=== PATIENT | female | born 1995 | race Caucasian/White ===

== ENCOUNTER → 2019-06-08 | Outpatient (CLI) | payer OTHER ==
[2019-06-13 03:07] LABS: CHLAMYDIA TRACHOMATIS, NAA Negative (Negative); NEISSERIA GONORRHOEAE, NAA Negative (Negative)
== END ==
LOC: LAB SHORT 18:32 → LAB 18:32
PROVIDERS: Nurse Practitioner Family
DX: Z72.51 High risk heterosexual behavior (principal)
CPT/HCPCS: 87491; 87591

== ENCOUNTER → 2019-06-14 | Outpatient (CLI) | payer OTHER | END | disposition home or self-care (01) | LOC: LAB SHORT 15:50 → LAB 15:50 | DX: J02.0 Streptococcal pharyngitis (principal) | CPT/HCPCS: 87081 ==

== ENCOUNTER 2020-09-04 06:27 | Day surgery (SDC) | payer OTHER ==
[~2020-09-04] VITALS: Ht 170.2 cm; Wt 66.2 kg
== END 2020-09-04 09:30 | disposition home or self-care (01) ==
LOC: ORSCSDS 06:27
PROVIDERS: Otolaryngology
PROC: 0CTPXZZ Resection of Tonsils, External Approach (ICD-10-PCS; principal; 2020-09-04 07:30)
PROC: 0CTQXZZ Resection of Adenoids, External Approach (ICD-10-PCS; principal; 2020-09-04 07:30)
DX: J35.01 Chronic tonsillitis (principal)
CPT/HCPCS: 88304; A9270; J1100; J2405; J2704; J3010; J7120

== ENCOUNTER 2020-09-06 03:00 | Emergency (ER) | payer OTHER ==
[~2020-09-06] VITALS: Ht 170.2 cm; Wt 61.2 kg
[2020-09-06] MEDS ORDERED: OXYC5 PO (03:21)
[2020-09-06] MEDS ORDERED: ONDA4ODT MM (03:22)
[2020-09-06 03:36] LABS: BASOPHILS ABSOLUTE AUTO 0.03 K/mm3 (0.00-0.23); BASOPHILS PERCENT AUTO 0 % (0-2); EOSINOPHILS ABSOLUTE AUTO 0.07 K/mm3 (0.00-0.68); EOSINOPHILS PERCENT AUTO 1 % (0-6); Hematocrit 42.2 % (33.0-51.0); Hemoglobin 13.9 g/dL (11.5-16.0); IMMATURE GRAN ABSOLUTE AUTO 0.02 K/mm3 (0.00-0.10); IMMATURE GRAN PERCENT AUTO 0 % (0-1); LYMPHOCYTES ABSOLUTE AUTO 1.97 K/mm3 (0.84-5.20); LYMPHOCYTES PERCENT AUTO 24 % (21-46); MONOCYTES ABSOLUTE AUTO 0.64 K/mm3 (0.16-1.47); MONOCYTES PERCENT AUTO 8 % (4-13); Mean Corpuscular HGB 30.9 pg (26.0-34.0); Mean Corpuscular HGB Conc 32.9 g/dL (31.5-36.5); Mean Corpuscular Volume 94 fL (80-100); Mean Platelet Volume 9.7 fL (9.1-12.4); NEUTROPHILS ABSOLUTE AUTO 5.59 K/mm3 (1.96-9.15); NEUTROPHILS PERCENT AUTO 67 % (41-73); Platelet Count 230 K/mm3 (150-400); RDW Coefficient Variation 11.8 % (11.7-14.2); RDW Standard Deviation 40.9 fL (35.1-46.3); White Blood Cell Count 8.32 K/mm3 (4.00-11.30)
[2020-09-06 03:50] LABS: International Normalized Ratio 0.95; Prothrombin Time Results 10.3 Sec (9.7-11.5)
[2020-09-06 03:54] LABS: Alanine Aminotransfer (ALT/SGP 30 U/L (12-78); Albumin, Blood 4.1 g/dL (3.4-5.0); Albumin/Globulin Ratio 1.2 (0.8-1.8); Alk Phos 57 U/L (50-136); Anion Gap 5 mmol/L (6-16); Aspartate Aminotrans (AST/SGOT 12 U/L (12-37); Bilirubin, Total 0.3 mg/dL (0.1-1.0); Blood Urea Nitrogen 9 mg/dL (8-24); Bun/Creatinine Ratio 12.8 (12.0-20.0); CO2, Blood 30 mmol/L (21-32); Calcium, Blood 8.8 mg/dL (8.5-10.1); Chloride, Blood 102 mmol/L (98-108); Creatinine, Blood 0.71 mg/dL (0.40-1.00); Globulin, Blood 3.5 g/dL (2.2-4.0); Glomerular Filtration Rate >60 (60-); Glucose, Blood 107 mg/dL (70-99); Potassium, Blood 3.5 mmol/L (3.5-5.5); Sodium, Blood 137 mmol/L (136-145); Total Protein, Blood 7.6 g/dL (6.4-8.2)
[2020-09-06] MEDS ORDERED: COMPAZINE10 MG PO (04:20)
== END 2020-09-06 05:52 | disposition home or self-care (01) ==
LOC: ER 03:00
PROVIDERS: Emergency Medicine
DX: G89.18 Other acute postprocedural pain (principal); R51.9 Headache, unspecified; R11.2 Nausea with vomiting, unspecified
CPT/HCPCS: 70450; 80053; 85025; 85610; 96374; 96375; 99284-25; J0780; J1200; J1885; J2405; J7030

== ENCOUNTER 2024-01-22 11:21 | Emergency (ER) | payer SELFPAY ==
[~2024-01-22] VITALS: Ht 170.2 cm; Wt 61.2 kg
[~2024-01-22 11:21] MED LIST: COMPAZINE10 MG PO; ONDA4ODT MM; OXYC5 PO
[2024-01-22 12:05] VITALS: BP 130/87
[2024-01-22] MEDS ORDERED: HYDROcodone 7.5-APAP 325 TAB PO ONE (12:25)
[2024-01-22] MEDS ORDERED: Norco 7.5-3251 EACH PO (13:24)
== END 2024-01-22 13:25 | disposition home or self-care (01) ==
LOC: ER 11:21
DX: S70.11XA Contusion of right thigh, initial encounter (principal); S80.11XA Contusion of right lower leg, initial encounter; W55.12XA Struck by horse, initial encounter
CPT/HCPCS: 73552; 73590; 99283-25; A9270

== ENCOUNTER → 2024-04-10 | Outpatient (CLI) | payer OTHER ==
[~2024-04-10] MED LIST changes: +DOCU100 PO; +ENOX60I SC; +Norco 7.5-3251 EACH PO; +PRENATAL TABLE1 EAC2 PO; +Percocet 5-3251 EACH PO
[2024-04-10 14:50] LABS: BASOPHILS ABSOLUTE AUTO 0.03 K/mm3 (0.00-0.23); BASOPHILS PERCENT AUTO 0 % (0-2); EOSINOPHILS ABSOLUTE AUTO 0.05 K/mm3 (0.00-0.68); EOSINOPHILS PERCENT AUTO 1 % (0-6); Hematocrit 39.9 % (33.0-51.0); Hemoglobin 13.7 g/dL (11.5-16.0); IMMATURE GRAN ABSOLUTE AUTO 0.03 K/mm3 (0.00-0.10); IMMATURE GRAN PERCENT AUTO 0 % (0-1); LYMPHOCYTES PERCENT AUTO 22 % (21-46); MONOCYTES ABSOLUTE AUTO 0.53 K/mm3 (0.16-1.47); MONOCYTES PERCENT AUTO 7 % (4-13); Mean Corpuscular HGB 32.2 pg (26.0-34.0); Mean Corpuscular HGB Conc 34.3 g/dL (31.5-36.5); Mean Corpuscular Volume 94 fL (80-100); Mean Platelet Volume 9.3 fL (9.1-12.4); NEUTROPHILS PERCENT AUTO 69 % (41-73); Platelet Count 289 K/mm3 (150-400); RDW Coefficient Variation 11.7 % (11.7-14.2); RDW Standard Deviation 39.3 fL (35.1-46.3); Red Blood Cell Count 4.26 M/mm3 (3.80-5.20); White Blood Cell Count 7.24 K/mm3 (4.00-11.30)
[2024-04-10 15:05] LABS: Albumin, Blood 4.1 g/dL (3.4-5.0); Albumin/Globulin Ratio 1.2 (0.8-1.8); Bilirubin, Total 0.3 mg/dL (0.1-1.0); Calcium, Blood 8.7 mg/dL (8.5-10.1); Creatinine, Blood 0.73 mg/dL (0.40-1.00); Globulin, Blood 3.3 g/dL (2.2-4.0); Total Protein, Blood 7.4 g/dL (6.4-8.2)
== END ==
LOC: LAB SHORT 14:46 → LAB 14:46
PROVIDERS: Family Medicine
DX: R10.9 Unspecified abdominal pain (principal); Z3A.01 Less than 8 weeks gestation of pregnancy
CPT/HCPCS: 80053; 84702; 85025

== ENCOUNTER 2024-04-13 10:06 | Observation (INO) | payer OTHER ==
[~2024-04-13] VITALS: Ht 170.2 cm; Wt 60.5 kg
[~2024-04-13 10:06] MED LIST changes: -DOCU100 PO; -ENOX60I SC; -PRENATAL TABLE1 EAC2 PO; -Percocet 5-3251 EACH PO
[2024-04-13 11:29] LABS: Source, Urine Clean Catch
[2024-04-13 11:36] LABS: Appearance, Urine Clear (Clear); Bilirubin, Urine Neg (Neg); Blood, Urine Neg (Neg); Color, Urine Yellow (P-Yellow); Glucose Qualitative, Urine Neg (Neg); Ketones, Urine Neg (Neg); Leukocyte Esterase, Urine Neg (Neg); Nitrite, Urine Neg (Neg); Protein, Urine Neg (Neg); Urobilinogen, Urine NORM (Normal)
[2024-04-13] MEDS ORDERED: HYDROcodone 5-APAP 325 TAB PO ONE (13:20)
[2024-04-13] MEDS ORDERED: HYDROmorphone HCl/Pf 1MG SYR IV ONE ×2 (13:55→17:40)
[2024-04-13 14:26] LABS: BASOPHILS ABSOLUTE AUTO 0.02 K/mm3 (0.00-0.23); BASOPHILS PERCENT AUTO 0 % (0-2); EOSINOPHILS ABSOLUTE AUTO 0.07 K/mm3 (0.00-0.68); EOSINOPHILS PERCENT AUTO 1 % (0-6); Hematocrit 42.3 % (33.0-51.0); Hemoglobin 14.8 g/dL (11.5-16.0); IMMATURE GRAN ABSOLUTE AUTO 0.02 K/mm3 (0.00-0.10); IMMATURE GRAN PERCENT AUTO 0 % (0-1); LYMPHOCYTES ABSOLUTE AUTO 2.13 K/mm3 (0.84-5.20); LYMPHOCYTES PERCENT AUTO 28 % (21-46); MONOCYTES ABSOLUTE AUTO 0.52 K/mm3 (0.16-1.47); MONOCYTES PERCENT AUTO 7 % (4-13); Mean Corpuscular HGB 33.1 pg (26.0-34.0); Mean Corpuscular Volume 95 fL (80-100); Mean Platelet Volume 9.2 fL (9.1-12.4); NEUTROPHILS ABSOLUTE AUTO 4.98 K/mm3 (1.96-9.15); NEUTROPHILS PERCENT AUTO 64 % (41-73); Platelet Count 278 K/mm3 (150-400); RDW Coefficient Variation 11.4 % (11.7-14.2); RDW Standard Deviation 39.5 fL (35.1-46.3); Red Blood Cell Count 4.47 M/mm3 (3.80-5.20); White Blood Cell Count 7.74 K/mm3 (4.00-11.30)
[2024-04-13 14:48] LABS: Albumin/Globulin Ratio 1.1 (0.8-1.8); Bilirubin, Total 0.5 mg/dL (0.1-1.0); Bun/Creatinine Ratio 16.7 (12.0-20.0); Creatinine, Blood 0.6 mg/dL (0.40-1.00); Globulin, Blood 3.5 g/dL (2.2-4.0); Potassium, Blood 3.3 mmol/L (3.5-5.5); Total Protein, Blood 7.5 g/dL (6.4-8.2)
[2024-04-13] MEDS ORDERED: Enoxaparin 60 MG/0.6 ML SYR SC SCH (19:00)
[2024-04-13] MEDS ORDERED: HYDROmorphone HCl/Pf 1MG SYR IV PRN (19:30)
[2024-04-13] MEDS ORDERED: Metoclopramide HCl 5MG / ML 2ML Vial IV PRN (19:30)
[2024-04-13] MEDS ORDERED: Potassium Chloride 20 MEQ/15 ML UDC PO ONE (20:00)
[2024-04-13] MEDS ORDERED: NS 1,000 ML IV ONE (20:45)
[2024-04-13 20:50] VITALS: BP 131/105
[2024-04-13] MEDS ORDERED: Docusate Sodium 100 MG Cap PO SCH (21:00)
[2024-04-13] MEDS ORDERED: PRENATAL TABLE1 EAC2 PO (21:02)
[2024-04-14 02:02] VITALS: BP 107/78
--- NOTE | 2024-04-14 04:45 | NUR ---
REC'D PT FROM ER AROUND 2100 FROM ER. AAOX4, EMOTIONAL R/T HOSPITALIZATION AND PAIN, AND UNKNOW STATUS OF . INDEPENDENT IN ROOM. TELE IN PLACE, SR @ 95. EXTREME PAIN IN R SHOULDER WITH RADIATION INTO BACK. DILADID GIVEN ORDERED AND K-PAD. EMISIS X1, REGLAN GIVEN WHICH HELPED. PARTICALLY OCCLUSIVE THROMBUS R PELVIC VEIN, DVT. PT IS 5 WEEKS WITH LOSER BACK CRAMPING SINCE 04/10/24, CONCERN FOR ECTOPIC . OB PLANS TO FOLLOW IN MORNING AND R SHOULDER X-RAY/
[2024-04-14 05:05] LABS: Hematocrit 37.2 % (33.0-51.0); Hemoglobin 12.8 g/dL (11.5-16.0); Mean Corpuscular HGB 32.7 pg (26.0-34.0); Mean Corpuscular HGB Conc 34.4 g/dL (31.5-36.5); Mean Corpuscular Volume 95 fL (80-100); Mean Platelet Volume 9.2 fL (9.1-12.4); Platelet Count 252 K/mm3 (150-400); RDW Coefficient Variation 11.3 % (11.7-14.2); RDW Standard Deviation 39.8 fL (35.1-46.3); Red Blood Cell Count 3.92 M/mm3 (3.80-5.20)
[2024-04-14 05:47] LABS: Bun/Creatinine Ratio 19.3 (12.0-20.0); Calcium, Blood 8.6 mg/dL (8.5-10.1); Creatinine, Blood 0.62 mg/dL (0.40-1.00); Potassium, Blood 4.1 mmol/L (3.5-5.5)
[2024-04-14 07:23] VITALS: BP 97/52
[2024-04-14 09:04] VITALS: BP 117/68
[2024-04-14] MEDS ORDERED: Acetaminophen 325 MG TABLET PO PRN (15:25)
[2024-04-14 15:42] VITALS: BP 117/78
--- NOTE | 2024-04-14 16:32 | NUR ---
SHIFT SUMMARY PATIENT C/O RIGHT SHOULDER PAIN THAT RADIATES UP NECK AND TO RIGHT SIDE OF FACE/THAT MORE SO FEELS LIKE PRESSURE TO THE SINUSES/EYE. PATIENT STATES IT FEELS TINGLY BUT DOES NOT FEEL NUMB. PRN DILAUDID 1 MG GIVEN X3 THIS RN SHIFT. DR. ALEX ADDED PRN TYLENOL. PT AGREEABLE TO TRY 0.5 MG DILAUDID AND TYLENOL TOGETHER NEXT TIME TO WEAN OFF DILAUDID IN PREPARATION FOR GOING HOME. DR. THIERNO MAYER WAS CALLED BY THIS RN PER DR. ALEX WHO STATED NOTHING NEW FROM HER STAND POINT WOULD BE DONE BUT WOULD BE HAPPY TO SPEAK TO DR. ALEX. CALLED BACK DR. ALEX AND GAVE HER DR. BHATIA NUMBER SO THEY COULD SPEAK DIRECTLY. PT C/O NAUSEA AND VOMITED X1 TODAY SHORTLY AFTER ATTEMPTING TO EAT FOOD FAMILY HAD BROUGHT IN. SHOULDER X-RAY COMPLETED. PT IS ABLE TO MAKE NEEDS KNOWN. CALL LIGHT IN ROOM, INDEPENDENT IN ROOM.
[2024-04-14 20:05] VITALS: BP 120/69
[2024-04-15 03:01] VITALS: BP 126/62
--- NOTE | 2024-04-15 05:02 | NUR ---
AAOX4, INDEPENDENT IN ROOM. USES CALL LIGHT FOR NEEDS. MEDICATED FOR R SHOULDER PAIN AND NAUSEA PRN. X1 EMISIS AFTER DINNER. ABLE TO KEEP FOOD FAMILY BROUGHT IN WITHOUT EMISIS. PLAN TO DC HOME WITH FOLLOW-UP OB, MASSAGE AND CIROPRACTIC CARE.
[2024-04-15 08:17] VITALS: BP 118/76
[2024-04-15] MEDS ORDERED: ENOX60I SC (12:17)
[2024-04-15] MEDS ORDERED: DOCU100 PO (12:17)
[2024-04-15] MEDS ORDERED: Percocet 5-3251 EACH PO (12:18)
--- NOTE | 2024-04-15 13:36 | NUR ---
PT DISCHARGED DC INSTRUCTIONS GIVEN TO THE PT BY ANAHY BRADSHAW. THE PTS PRESCRIPTIONS WERE REFAXED TO [facility] PER THE PTS REQUEST. THE PT AMBULATED OUT STEADY ON HER FEET. DECLINED A WHEELCHAIR TRANSPORT.
--- NOTE | 2024-04-15 13:46 | NUR ---
DISCHARGE NOTE. DISCHARGE PAPERWORK REVIEWED WITH PATIENT. JULI GATHERED AND RETUREND. IV'S REMOVED. DR. ALEX ADDED ZOFRAN TO DISCHARGE MED REC SO AFER PATIENT HAD LEFT UNIT, CALLED PATIENT BACK TO LET HER KNOW. ALL MEDICATIONS ORIGINALLY FAXED TO [facility] BUT THEY DID NOT CARRY LOVENOX INJECTIONS SO ALL MEDS FAXED TO [facility] FA[facility] SENT FOR NEW [place].
== END 2024-04-15 13:25 | disposition home or self-care (01) ==
LOC: ER 10:06 → MEDS 10:07 → ENPENDDIS 04-15 12:55 → MEDS 04-15 13:25
PROVIDERS: Nurse Practitioner Acute Care; Physician Assistant; ADMIT Student in an Organized Health Care Education/Training Program
DX: O99.891 Other specified diseases and conditions complicating pregnancy (principal); M25.511 Pain in right shoulder; Z3A.00 Weeks of gestation of pregnancy not specified
CPT/HCPCS: 36415; 71260; 73030; 76801; 80048; 80053; 81003; 84702; 85025; 85027; 93005; 93010; 93971; 96372; 96374-59; 96375; 96376; 96376-59; 99285-25; A9270; G0378; J1171; J1650; J2765; J7030; Q9967

== ENCOUNTER 2024-05-14 16:23 | Emergency (ER) | payer OTHER ==
[~2024-05-14] VITALS: Ht 170.2 cm; Wt 61.2 kg
[~2024-05-14 16:23] MED LIST changes: +DOCU100 PO; +ENOX60I SC; +PRENATAL TABLE1 EAC2 PO; +Percocet 5-3251 EACH PO
[2024-05-14 16:31] VITALS: BP 137/79
[2024-05-14 16:59] LABS: BASOPHILS ABSOLUTE AUTO 0.03 K/mm3 (0.00-0.23); BASOPHILS PERCENT AUTO 0 % (0-2); EOSINOPHILS PERCENT AUTO 2 % (0-6); Hematocrit 37.1 % (33.0-51.0); IMMATURE GRAN ABSOLUTE AUTO 0.03 K/mm3 (0.00-0.10); IMMATURE GRAN PERCENT AUTO 0 % (0-1); LYMPHOCYTES ABSOLUTE AUTO 2.45 K/mm3 (0.84-5.20); LYMPHOCYTES PERCENT AUTO 28 % (21-46); MONOCYTES ABSOLUTE AUTO 0.69 K/mm3 (0.16-1.47); MONOCYTES PERCENT AUTO 8 % (4-13); Mean Corpuscular HGB 32.7 pg (26.0-34.0); Mean Corpuscular Volume 93 fL (80-100); Mean Platelet Volume 9.7 fL (9.1-12.4); NEUTROPHILS ABSOLUTE AUTO 5.44 K/mm3 (1.96-9.15); NEUTROPHILS PERCENT AUTO 62 % (41-73); Platelet Count 289 K/mm3 (150-400); RDW Coefficient Variation 11.2 % (11.7-14.2); RDW Standard Deviation 38.3 fL (35.1-46.3); Red Blood Cell Count 3.98 M/mm3 (3.80-5.20); White Blood Cell Count 8.84 K/mm3 (4.00-11.30)
[2024-05-14 17:56] LABS: Albumin, Blood 3.4 g/dL (3.4-5.0); Bilirubin, Total 0.1 mg/dL (0.1-1.0); Bun/Creatinine Ratio 20.9 (12.0-20.0); Calcium, Blood 8.6 mg/dL (8.5-10.1); Creatinine, Blood 0.62 mg/dL (0.40-1.00); Globulin, Blood 3.5 g/dL (2.2-4.0); Potassium, Blood 3.7 mmol/L (3.5-5.5); Total Protein, Blood 6.9 g/dL (6.4-8.2)
[2024-05-14 18:45] LABS: Source, Urine Clean Catch
[2024-05-14 18:48] LABS: Appearance, Urine Clear (Clear); Bilirubin, Urine Neg (Neg); Blood, Urine 1+ (Neg); Color, Urine Yellow (P-Yellow); Glucose Qualitative, Urine Neg (Neg); Ketones, Urine Neg (Neg); Leukocyte Esterase, Urine Neg (Neg); Nitrite, Urine Neg (Neg); Protein, Urine Neg (Neg); Urobilinogen, Urine NORM (Normal)
[2024-05-14 18:56] LABS: Bacteria Rare /hpf; Red Blood Cells, Urine 0-2 /hpf (0-2); Squamous Epithelial Cells Few /hpf (Few); White Blood Cells, Urine 0-2 /hpf (0-5)
[2024-05-14] MEDS ORDERED: RX Prepack 6 Tabs Oxycodone 5mg UD ONE (19:55)
[2024-05-14] MEDS ORDERED: Acetaminophen 500 MG Tab PO ONE (19:55)
== END 2024-05-14 20:17 | disposition home or self-care (01) ==
LOC: ER 16:23
PROVIDERS: Student in an Organized Health Care Education/Training Program
DX: O46.91 Antepartum hemorrhage, unspecified, first trimester (principal); O99.891 Other specified diseases and conditions complicating pregnancy; R10.2 Pelvic and perineal pain; Z3A.08 8 weeks gestation of pregnancy; Z79.899 Other long term (current) drug therapy
CPT/HCPCS: 76801; 76817; 80053; 81001; 84702; 85025; 86900; 86901; 99284-25; A9270

== ENCOUNTER 2024-07-05 16:03 | Emergency (ER) | payer OTHER ==
[~2024-07-05] VITALS: Ht 170.2 cm; Wt 65.3 kg
[2024-07-05 16:33] LABS: Source, Urine Clean Catch
[2024-07-05 16:36] LABS: Appearance, Urine Clear (Clear); Bilirubin, Urine Neg (Neg); Blood, Urine Neg (Neg); Glucose Qualitative, Urine Neg (Neg); Ketones, Urine Neg (Neg); Leukocyte Esterase, Urine Neg (Neg); Nitrite, Urine Neg (Neg); Protein, Urine Neg (Neg); Specific Gravity, Urine 1.005 (1.003-1.022); Urobilinogen, Urine NORM (Normal)
[2024-07-05 16:44] LABS: BASOPHILS ABSOLUTE AUTO 0.03 K/mm3 (0.00-0.23); BASOPHILS PERCENT AUTO 0 % (0-2); EOSINOPHILS ABSOLUTE AUTO 0.11 K/mm3 (0.00-0.68); EOSINOPHILS PERCENT AUTO 2 % (0-6); Hematocrit 35.5 % (33.0-51.0); Hemoglobin 12.3 g/dL (11.5-16.0); IMMATURE GRAN ABSOLUTE AUTO 0.02 K/mm3 (0.00-0.10); IMMATURE GRAN PERCENT AUTO 0 % (0-1); LYMPHOCYTES ABSOLUTE AUTO 1.62 K/mm3 (0.84-5.20); LYMPHOCYTES PERCENT AUTO 24 % (21-46); MONOCYTES ABSOLUTE AUTO 0.36 K/mm3 (0.16-1.47); MONOCYTES PERCENT AUTO 5 % (4-13); Mean Corpuscular HGB 31.9 pg (26.0-34.0); Mean Corpuscular HGB Conc 34.6 g/dL (31.5-36.5); Mean Corpuscular Volume 92 fL (80-100); Mean Platelet Volume 9.4 fL (9.1-12.4); NEUTROPHILS PERCENT AUTO 69 % (41-73); Platelet Count 247 K/mm3 (150-400); RDW Coefficient Variation 12.3 % (11.7-14.2); RDW Standard Deviation 41.3 fL (35.1-46.3); Red Blood Cell Count 3.86 M/mm3 (3.80-5.20); White Blood Cell Count 6.84 K/mm3 (4.00-11.30)
[2024-07-05 16:45] LABS: Color, Urine Pale Yellow (P-Yellow)
[2024-07-05 17:09] LABS: Albumin, Blood 3.2 g/dL (3.4-5.0); Albumin/Globulin Ratio 0.9 (0.8-1.8); Bilirubin, Total 0.1 mg/dL (0.1-1.0); Bun/Creatinine Ratio 19.4 (12.0-20.0); Calcium, Blood 8.6 mg/dL (8.5-10.1); Creatinine, Blood 0.57 mg/dL (0.40-1.00); Globulin, Blood 3.5 g/dL (2.2-4.0); Potassium, Blood 3.4 mmol/L (3.5-5.5); Total Protein, Blood 6.7 g/dL (6.4-8.2)
[2024-07-05] MEDS ORDERED: Morphine Sulfate 4 MG/1 ML Injection IV ONE ×2 (19:50→23:15)
[2024-07-05] MEDS ORDERED: NS 1,000 ML IV SCH (23:15)
[2024-07-06 00:30] VITALS: BP 111/53
== END 2024-07-06 00:50 | disposition home or self-care (01) ==
LOC: ER 16:03
PROVIDERS: Physician Assistant
DX: O62.9 Abnormality of forces of labor, unspecified (principal); O26.892 Other specified pregnancy related conditions, second trimester; R10.2 Pelvic and perineal pain; Z3A.16 16 weeks gestation of pregnancy; G43.909 Migraine, unspecified, not intractable, without status migrainosus; Z79.899 Other long term (current) drug therapy
CPT/HCPCS: 76705; 76815; 76817; 80053; 81003; 83690; 85025; 96361; 96374; 96376; 99284-25; J2270; J7030

== ENCOUNTER 2024-08-16 18:26 | Emergency (ER) | payer OTHER ==
[~2024-08-16] VITALS: Ht 170.2 cm; Wt 68.0 kg
[2024-08-16] MEDS ORDERED: Acetaminophen 500 MG Tab PO ONE (18:35)
[2024-08-16] MEDS ORDERED: Ondansetron HCl 2 MG / ML 2ML Vial IV ONE (18:35)
[2024-08-16] MEDS ORDERED: NS 1,000 ML IV SCH (18:35)
[2024-08-16] MEDS ORDERED: Morphine Sulfate 4 MG/1 ML Injection IV ONE ×2 (18:40→19:45)
[2024-08-16] MEDS ORDERED: ENOX80I SC (19:09)
[2024-08-16 19:13] LABS: BASOPHILS ABSOLUTE AUTO 0.02 K/mm3 (0.00-0.23); BASOPHILS PERCENT AUTO 0 % (0-2); EOSINOPHILS ABSOLUTE AUTO 0.16 K/mm3 (0.00-0.68); EOSINOPHILS PERCENT AUTO 2 % (0-6); Hematocrit 35.4 % (33.0-51.0); Hemoglobin 12.3 g/dL (11.5-16.0); IMMATURE GRAN ABSOLUTE AUTO 0.03 K/mm3 (0.00-0.10); IMMATURE GRAN PERCENT AUTO 0 % (0-1); LYMPHOCYTES ABSOLUTE AUTO 1.67 K/mm3 (0.84-5.20); LYMPHOCYTES PERCENT AUTO 24 % (21-46); MONOCYTES ABSOLUTE AUTO 0.47 K/mm3 (0.16-1.47); MONOCYTES PERCENT AUTO 7 % (4-13); Mean Corpuscular HGB 31.6 pg (26.0-34.0); Mean Corpuscular HGB Conc 34.7 g/dL (31.5-36.5); Mean Corpuscular Volume 91 fL (80-100); Mean Platelet Volume 9.4 fL (9.1-12.4); NEUTROPHILS ABSOLUTE AUTO 4.75 K/mm3 (1.96-9.15); NEUTROPHILS PERCENT AUTO 67 % (41-73); Platelet Count 227 K/mm3 (150-400); RDW Coefficient Variation 12.7 % (11.7-14.2); RDW Standard Deviation 41.8 fL (35.1-46.3); Red Blood Cell Count 3.89 M/mm3 (3.80-5.20)
[2024-08-16 19:17] LABS: Source, Urine Clean Catch
[2024-08-16 19:20] LABS: Bilirubin, Urine Neg (Neg); Blood, Urine Neg (Neg); Glucose Qualitative, Urine Neg (Neg); Ketones, Urine Neg (Neg); Leukocyte Esterase, Urine Neg (Neg); Nitrite, Urine Neg (Neg); Protein, Urine Neg (Neg); Specific Gravity, Urine 1.005 (1.003-1.022); Urobilinogen, Urine NORM (Normal)
[2024-08-16 19:33] LABS: Appearance, Urine Clear (Clear); Color, Urine Pale Yellow (P-Yellow)
[2024-08-16 19:36] LABS: Albumin, Blood 3.4 g/dL (3.4-5.0); Albumin/Globulin Ratio 0.9 (0.8-1.8); Bilirubin, Total 0.1 mg/dL (0.1-1.0); Bun/Creatinine Ratio 19.5 (12.0-20.0); Calcium, Blood 8.5 mg/dL (8.5-10.1); Creatinine, Blood 0.51 mg/dL (0.40-1.00); Globulin, Blood 3.7 g/dL (2.2-4.0); Magnesium, Blood 2.1 mg/dL (1.6-2.4); Potassium, Blood 3.3 mmol/L (3.5-5.5); Total Protein, Blood 7.1 g/dL (6.4-8.2)
[2024-08-16] MEDS ORDERED: Magnesium Oxide 400 MG Tab PO ONE (20:40)
[2024-08-16] MEDS ORDERED: Potassium Chloride 20 MEQ TabCR PO ONE (20:40)
[2024-08-16 20:45] VITALS: BP 113/72
== END 2024-08-16 20:54 | disposition home or self-care (01) ==
LOC: ER 18:26
PROVIDERS: Emergency Medicine
DX: O99.891 Other specified diseases and conditions complicating pregnancy (principal); R10.9 Unspecified abdominal pain; E87.6 Hypokalemia; G43.909 Migraine, unspecified, not intractable, without status migrainosus; Z3A.23 23 weeks gestation of pregnancy; Z79.899 Other long term (current) drug therapy
CPT/HCPCS: 76770; 76815; 80053; 81003; 82010; 83690; 83735; 84703; 85025; 96374; 96375; 96376; 99284-25; A9270; J2270; J2405; J7030

== ENCOUNTER 2024-11-26 11:13 | Inpatient (IN) | payer OTHER ==
[2024-11-26] VITALS (21 sets, daily range): BP systolic 98–137; BP diastolic 54–80
[~2024-11-26] VITALS: Ht 170.2 cm; Wt 76.8 kg
[~2024-11-26 11:13] MED LIST changes: +ENOX80I SC; +OXAYDO5 M1 PO
[2024-11-26] MEDS ORDERED: FentaNYL Citrate 50 MCG/ML 2 ML Injection IV ONE ×3 (11:35→23:30)
[2024-11-26] MEDS ORDERED: FentaNYL Citrate 50 MCG/ML 2 ML Injection ONE ×4 (13:01→23:30)
[2024-11-26] MEDS ORDERED: Ondansetron HCl 2 MG / ML 2ML Vial IV ONE (13:55)
[2024-11-26] MEDS ORDERED: Pantoprazole Sodium 40 MG Injection IV ONE (14:00)
[2024-11-26] MEDS ORDERED: CeFAZolin Sodium 2,000 MG in NS 100 ML IV SCH ×2 (14:15→23:00)
[2024-11-26] MEDS ORDERED: FentaNYL Citrate 50 MCG/ML 2 ML Injection IV PRN ×2 (14:35→21:55)
[2024-11-26 14:39] LABS: BASOPHILS ABSOLUTE AUTO 0.02 K/mm3 (0.00-0.23); BASOPHILS PERCENT AUTO 0 % (0-2); EOSINOPHILS ABSOLUTE AUTO 0.06 K/mm3 (0.00-0.68); EOSINOPHILS PERCENT AUTO 1 % (0-6); Hematocrit 34.7 % (33.0-51.0); Hemoglobin 11.7 g/dL (11.5-16.0); IMMATURE GRAN ABSOLUTE AUTO 0.04 K/mm3 (0.00-0.10); IMMATURE GRAN PERCENT AUTO 1 % (0-1); LYMPHOCYTES ABSOLUTE AUTO 1.58 K/mm3 (0.84-5.20); LYMPHOCYTES PERCENT AUTO 22 % (21-46); MONOCYTES ABSOLUTE AUTO 0.48 K/mm3 (0.16-1.47); MONOCYTES PERCENT AUTO 7 % (4-13); Mean Corpuscular HGB Conc 33.7 g/dL (31.5-36.5); Mean Corpuscular Volume 93 fL (80-100); NEUTROPHILS ABSOLUTE AUTO 5.00 K/mm3 (1.96-9.15); NEUTROPHILS PERCENT AUTO 70 % (41-73); NRBC ABSOLUTE 0.00 K/mm3 (0.00-0.02); NRBC Auto 0.0 /100 WBC (0.0-0.2); Platelet Count 262 K/mm3 (150-400); RDW Coefficient Variation 13.0 % (11.7-14.2); RDW Standard Deviation 43.9 fL (35.1-46.3)
[2024-11-26] MEDS ORDERED: Metoclopramide HCl 5MG / ML 2ML Vial ONE (19:26)
[2024-11-26] MEDS ORDERED: Citric Acid/Sodium Citrate 30 ML BTL ONE (19:27)
[2024-11-26] MEDS ORDERED: Citric Acid/Sodium Citrate 30 ML BTL PO SCH (19:30)
[2024-11-26] MEDS ORDERED: Metoclopramide HCl 5MG / ML 2ML Vial IV ONE (19:30)
[2024-11-26] MEDS ORDERED: Ondansetron HCl 2 MG / ML 2ML Vial ONE ×2 (20:06→21:37)
[2024-11-26] MEDS ORDERED: Dexamethasone Sod Phos 10 MG/ML 1ML VIAL ONE (20:06)
[2024-11-26] MEDS ORDERED: Midazolam HCl 1MG / ML 2ML Vial ONE (20:09)
[2024-11-26] MEDS ORDERED: Ketorolac Tromethamine 30mg Vial ONE (20:29)
[2024-11-26] MEDS ORDERED: Oxytocin 10 Unit / ML Vial ONE (20:29)
[2024-11-26] MEDS ORDERED: Phenylephrine HCl 100 MCG/ML-NS 10MLSYR (1MG/10ML) ONE ×2 (20:29)
[2024-11-26] MEDS ORDERED: DiphenhydrAMINE HCl 50 MG/ML 1ML Vial ONE (20:49)
[2024-11-26] MEDS ORDERED: Morphine Sulfate 4 MG/1 ML Injection IV PRN (21:35)
[2024-11-26] MEDS ORDERED: Methylergonovine Maleate 0.2MG / ML 1ML Amp IM PRN (21:35)
[2024-11-26] MEDS ORDERED: Ondansetron HCl 2 MG / ML 2ML Vial IV PRN (21:35)
[2024-11-26] MEDS ORDERED: OXYTOCIN/RINGER'S LACTATE 500 ML IV SCH (21:45)
[2024-11-26] MEDS ORDERED: OxyCODONE 5 mg/Acetamin 325 mg TABLET PO PRN (21:45)
[2024-11-26] MEDS ORDERED: Ketorolac Tromethamine 30mg Vial IV SCH (22:00)
[2024-11-26] MEDS ORDERED: Tranexamic Acid 100 ML IV PRN (22:10)
--- NOTE | 2024-11-26 22:51 | NUR ---
Assumed care after DC from PACU at 2224 in room. Pt was c/o pain 8/10 medications administered as ordered. Brought hospital pump in as mother reports plans to breastfeed. Mother reports she does not want to pump with anyone in the room so she will wait until after her recovery. Educated on breastmilk production and mother states she knows she breastfed x3 years.
--- NOTE | 2024-11-26 23:33 | NUR ---
REPORT GIVEN TO AUGUSTINE WOOD AT 2230.
[2024-11-27 00:50] VITALS: BP 120/67
[2024-11-27] MEDS ORDERED: NS 250 ML IV SCH (01:00)
[2024-11-27] MEDS ORDERED: Witch Hazel/Glycerin PADS TOP SCH (01:20)
[2024-11-27] MEDS ORDERED: fentaNYL citrate 50 MCG/ML 30MLSYR IV PRN ×3 (01:30→09:55)
[2024-11-27] MEDS ORDERED: fentaNYL citrate 20 MCG/ML 30MLSYR IV PRN ×2 (01:45→14:30)
[2024-11-27 05:10] VITALS: BP 125/89
[2024-11-27] MEDS ORDERED: Midazolam HCl 1MG / ML 2ML Vial ONE (05:41)
--- NOTE | 2024-11-27 06:36 | NUR ---
Patient tolerating GYPSUM BLOCK SETTER well, reports pain at 5-6 which she states is a manageable level. Patient reports feeling much better after getting a little bit of sleep. Able to make wants and needs known.
[2024-11-27 06:41] LABS: BASOPHILS ABSOLUTE AUTO 0.03 K/mm3 (0.00-0.23); BASOPHILS PERCENT AUTO 0 % (0-2); EOSINOPHILS ABSOLUTE AUTO 0.00 K/mm3 (0.00-0.68); EOSINOPHILS PERCENT AUTO 0 % (0-6); Hematocrit 34.1 % (33.0-51.0); Hemoglobin 11.9 g/dL (11.5-16.0); IMMATURE GRAN ABSOLUTE AUTO 0.10 K/mm3 (0.00-0.10); IMMATURE GRAN PERCENT AUTO 1 % (0-1); LYMPHOCYTES ABSOLUTE AUTO 1.72 K/mm3 (0.84-5.20); LYMPHOCYTES PERCENT AUTO 9 % (21-46); MONOCYTES ABSOLUTE AUTO 1.26 K/mm3 (0.16-1.47); MONOCYTES PERCENT AUTO 7 % (4-13); Mean Corpuscular HGB Conc 34.9 g/dL (31.5-36.5); Mean Corpuscular Volume 90 fL (80-100); NEUTROPHILS ABSOLUTE AUTO 15.26 K/mm3 (1.96-9.15); NEUTROPHILS PERCENT AUTO 83 % (41-73); NRBC ABSOLUTE 0.00 K/mm3 (0.00-0.02); NRBC Auto 0.0 /100 WBC (0.0-0.2); Platelet Count 259 K/mm3 (150-400); RDW Coefficient Variation 12.6 % (11.7-14.2); RDW Standard Deviation 41.6 fL (35.1-46.3)
[2024-11-27 07:40] VITALS: BP 121/67
[2024-11-27] MEDS ORDERED: Enoxaparin 60 MG/0.6 ML SYR SC SCH (09:00)
--- NOTE | 2024-11-27 09:02 | NUR ---
0845: PT UP OOB TO AMBULATE. PT DIDN'T WILLAM WELL R/T PAIN. R/T BED. USED FENT REGULATOR OPERATOR AND TORDOL GIVEN TO MANAGE PAIN.
--- NOTE | 2024-11-27 10:56 | NUR ---
1030: PT SITTING UP IN BED WITH HER 6 YEAR OLD SON IN HER LAP VISITING WITH FAMILY AND FRIENDS. WLILAM PAIN AT THIS TIME.
[2024-11-27 12:19] VITALS: BP 114/56
--- NOTE | 2024-11-27 12:50 | NUR ---
1230: PT DESIRES TO BE UP OOB TO SHOWER. WILLAM BETTER. TO SHOWER, KEBEDE D/C PER PT. PT VOIDED IN THE SHOWER.
[2024-11-27] MEDS ORDERED: CeFAZolin Sodium 2,000 MG in NS 100 ML IV SCH (13:20)
--- NOTE | 2024-11-27 13:22 | NUR ---
PT RESTING COMFORTABLY. WILLAM DISCOMFORT AT THIS TIME. HOLDING NB
--- NOTE | 2024-11-27 14:11 | NUR ---
1230. SAWMILL MOULDER OPERATOR D/C PER PT STATING THAT SHE FEELS LIKE SHE CAN HANDLE PAIN WITHOUT IT NOW.
--- NOTE | 2024-11-27 14:40 | NUR ---
PT UP TO BRP INDEPENDANTLY. WILLAM WELL.
--- NOTE | 2024-11-27 14:43 | NUR ---
PT REPORTS PAIN IS TOLERABLE AND SHE IS ABLE TO CARE FOR SELF AND NB
[2024-11-27] MEDS ORDERED: Ketorolac Tromethamine 30mg Vial IV ONE (14:50)
[2024-11-27 16:10] VITALS: BP 116/58
[2024-11-27 20:49] VITALS: BP 113/60
--- NOTE | 2024-11-28 00:43 | NUR ---
Assumed care at change of shift. Chatting with visitor at this time. Reports she didn't get much daytime sleep as she had multiple visitors throughout the day. Reports pain is managable at this time with staying on top of oral medications. Discussed plan for night including pain medication times and 24hour testing. Patient verbalizes understanding and agrees with plan of care. Patient has no support person for the night for the 2nd night instructed to call for help as needed to allow her to get rest this shift.
[2024-11-28 03:02] VITALS: BP 119/56
[2024-11-28] MEDS ORDERED: OXYTOCIN IV ONE (07:07)
[2024-11-28] MEDS ORDERED: RINGER S LACTATE IV ONE (07:07)
[2024-11-28 07:31] VITALS: BP 116/60
[2024-11-28] MEDS ORDERED: IBUP800 PO (09:41)
[2024-11-28] MEDS ORDERED: DOCU100 PO (09:41)
[2024-11-28] MEDS ORDERED: SIME80CH PO (09:41)
[2024-11-28] MEDS ORDERED: Percocet 5-3251 EACH PO (09:41)
[2024-11-28 11:08] VITALS: BP 111/59
[2024-11-28 16:44] VITALS: BP 124/59
[2024-11-28 20:30] VITALS: BP 128/64
[2024-11-29 02:15] VITALS: BP 109/58
[2024-11-29 07:29] VITALS: BP 124/58
[2024-11-29 11:33] VITALS: BP 131/76
--- NOTE | 2024-11-29 11:50 | NUR ---
DISCHARGE DISCHARGE HOME STABLE. INDEPENDANTLY CARING FOR SELF AND . VSS. AFEBRILE. INCISION C/D/I AND USING BINDER. PAIN WELL CONTROLLED WITH MEDS. VERBALIZES UNDERSTANDING OF DC INSTRUCTIONS AND FOLLOW UP APPOINTMENTS. NO QUESTIONS OR CONCERNS.
== END 2024-11-29 11:42 | disposition home or self-care (01) | DRG 784 ==
LOC: OBS 11:13 → BC 11:14 → OBS 14:14 → BC 14:14
PROVIDERS: ADMIT Obstetrics & Gynecology
PROC: 0UT70ZZ Resection of Bilateral Fallopian Tubes, Open Approach (ICD-10-PCS; 2024-11-26)
PROC: 10D00Z1 Extraction of Products of Conception, Low, Open Approach (ICD-10-PCS; principal; 2024-11-26 19:30)
DX: O34.211 Maternal care for low transverse scar from previous cesarean delivery (principal); D68.51 Activated protein C resistance; O99.12 Other diseases of the blood and blood-forming organs and certain disorders involving the immune mechanism complicating childbirth; Z3A.36 36 weeks gestation of pregnancy; Z37.0 Single live birth; Z30.2 Encounter for sterilization; O69.81X0 Labor and delivery complicated by cord around neck, without compression, not applicable or unspecified
CPT/HCPCS: 36415; 36416; 59025; 82947; 85025; 86850; 86900; 86901; 86923; 88302; 99214; A9270; J0690; J1100; J1200; J1650; J1885; J2250; J2270; J2371; J2405; J2470; J2590; J2704; J2765; J3010; J7050; J7120